=== PATIENT | female | born 1940 | race Caucasian/White ===

== ENCOUNTER 2019-06-20 18:35 | Emergency (ER) | payer OTHER, MEDICAID ==
[~2019-06-20] VITALS: Ht 157.4 cm; Wt 81.6 kg
[~2019-06-20 18:35] MED LIST: AMOXICILLIN875 MG PO; CLARITIN10 MG PO; DARVOCET N 1001 TAB PO; MAXIDE; MEDROL DOSEPAK4 MG PO; NORVASC; SPIRIVA18 MCG IH; THYROID; ZOCOR
[2019-06-20 19:57] LABS: BASO # 0.1 10*3/uL (0.0-0.1); BASO % 0.6 % (0.0-1.0); EOS # 0.1 10*3/uL (0.0-0.4); EOS % 0.6 % (1.0-4.0); HEMOGLOBIN 14.9 g/dl (12.0-16.0); LYMPH # 1.1 10*3/uL (1.3-4.4); LYMPH % 13.8 % (27.0-41.0); MEAN CELL VOLUME 92.7 fl (81.0-99.0); MEAN CORPUSCULAR HGB 29.4 pg (27.0-31.0); MEAN CORPUSCULAR HGB CONC 31.7 g/dl (33.0-37.0); MEAN PLATELET VOLUME 11.3 fl (9.6-12.3); MONO # 0.5 10*3/uL (0.1-1.0); MONO % 5.9 % (3.0-9.0); NEUT # 6.2 10*3/uL (2.3-7.9); NEUT % 78.8 % (47.0-73.0); PLATELET COUNT AUTOMATED 205 10*3/uL (130-400); RED BLOOD COUNT 5.07 10*6/uL (4.10-5.10); RED CELL DISTRI WIDTH 13.4 % (0-14.5); WHITE BLOOD COUNT 7.9 10*3/uL (4.8-10.8)
[2019-06-20 20:13] LABS: ALBUMIN 3.8 gm/dl (3.1-4.5); ALKALINE PHOSPHATASE 70 U/L (45-117); BUN 17 mg/dl (7-24); CHLORIDE 105 mmol/L (98-107); CREATININE 1.03 mg/dL (0.55-1.02); POTASSIUM 3.8 mmol/L (3.5-5.1); SGOT/AST 34 IU/L (3-35); SGPT/ALT 29 U/L (12-78); SODIUM 139 mmol/L (136-145); TOTAL PROTEIN 7.3 gm/dL (6.4-8.2)
[2019-06-20 20:24] LABS: TROPONIN I < 0.015 ng/ml (<0.045)
[2019-06-20] MEDS ORDERED: ZITHROMAX250 MG PO (21:16)
[2019-06-20 21:17] VITALS: BP 148/78
== END 2019-06-20 21:18 | disposition home or self-care (01) ==
LOC: ED 18:35
PROVIDERS: Physician Assistant
DX: J18.9 Pneumonia, unspecified organism (principal); I10 Essential (primary) hypertension; R79.1 Abnormal coagulation profile; Z88.8 Allergy status to other drugs, medicaments and biological substances; Z88.0 Allergy status to penicillin; Z79.899 Other long term (current) drug therapy

== ENCOUNTER 2022-04-14 12:48 | Emergency (ER) | payer OTHER, MEDICAID ==
[~2022-04-14] VITALS: Wt 81.6 kg
[~2022-04-14 12:48] MED LIST changes: +ZITHROMAX250 MG PO
[2022-04-14 12:54] VITALS: BP 140/40
== END 2022-04-14 14:32 | disposition left against medical advice (07) ==
LOC: ED 12:48
DX: F41.9 Anxiety disorder, unspecified (principal); Z53.21 Procedure and treatment not carried out due to patient leaving prior to being seen by health care provider

== ENCOUNTER 2022-04-21 03:49 | Inpatient (IN) | payer MEDICARE, MEDICAID ==
[~2022-04-21] VITALS: Ht 165.1 cm; Wt 78.5 kg
[2022-04-21 04:18] VITALS: BP 135/42
[2022-04-21 05:26] LABS: CREATININE 2.75 mg/dL (0.55-1.02); POTASSIUM 3.6 mmol/L (3.5-5.1); TOTAL PROTEIN 6.8 gm/dL (6.4-8.2)
[2022-04-21 05:58] LABS: BILIRUBIN Negative (Negative); BLOOD Negative (Negative); CLARITY Clear (Clear); COLOR Yellow (Yellow); GLUCOSE Negative (Negative); KETONE Trace (Negative); LEUKO ESTERASE Negative (Negative); NITRITE Negative (Negative); UROBILINOGEN 0.2 E.U./dl (0.0-1.0)
[2022-04-21 06:03] LABS: HEMATOCRIT 41.3 % (37.0-47.0); MEAN CELL VOLUME 86.4 fl (81.0-99.0); MEAN CORPUSCULAR HGB 29.1 pg (27.0-31.0); MEAN CORPUSCULAR HGB CONC 33.7 g/dl (33.0-37.0); MEAN PLATELET VOLUME 13.3 fl (9.6-12.3); PLATELET COUNT AUTOMATED 193 10*3/uL (130-400); RED BLOOD COUNT 4.78 10*6/uL (4.10-5.10); RED CELL DISTRI WIDTH 13.2 % (0-14.5); WHITE BLOOD COUNT 6.8 10*3/uL (4.8-10.8)
[2022-04-21 06:04] LABS: MANUAL DIFF REFLEX YES
[2022-04-21 06:09] LABS: BACTERIA 1+; CALCIUM OXALATE CRYSTALS 2+; WBC 0-2 wbc/hpf (0-5)
[2022-04-21 07:03] LABS: ACETAMINOPHEN (TYLENOL) < 5.0 ug/ml (10-30); ETHYL ALCOHOL < 3.0 mg/dl (<3)
[2022-04-21 07:12] LABS: URINE AMPHETAMINES < 1000 (1000ng/ml); URINE BARBITURATES < 200 (200ng/ml); URINE BENZODIAZEPINES < 200 (200ng/ml); URINE CANNABINOIDS (THC) < 50 (50ng/ml); URINE COCAINE < 300 (300ng/ml); URINE METHADONE < 300 (300ng/ml); URINE OPIATES < 300 (300ng/ml)
[2022-04-21 07:17] LABS: TOTAL CELLS COUNTED 100 #CELLS
[2022-04-21 07:18] LABS: PLATELET SUFFICIENCY NORMAL (NORMAL)
[2022-04-21 07:20] LABS: URINE PHENCYCLIDINE < 25 (25ng/ml)
[2022-04-21 11:29] VITALS: BP 135/42
[2022-04-21] MEDS ORDERED: Synthroid,Levo88 MCG PO (13:29)
[2022-04-21] MEDS ORDERED: LOSARTAN POTASS50 M1 PO (13:30)
[2022-04-21] MEDS ORDERED: PRAVASTATIN SOD10 MG PO (13:31)
[2022-04-21] MEDS ORDERED: FLUOXETINE HYDR20 M1 PO (13:31)
[2022-04-21] MEDS ORDERED: BUDESONIDE-FO10.2 G1 INH (13:32)
[2022-04-21 19:45] VITALS: BP 110/48
[2022-04-21 21:15] VITALS: BP 113/50
[2022-04-21 22:33] LABS: CREATININE 1.96 mg/dL (0.55-1.02); POTASSIUM 3.5 mmol/L (3.5-5.1)
[2022-04-22] VITALS: BP 104/56
[2022-04-22 06:24] LABS: BASO % 0.7 % (0.0-1.0); EOS # 0.2 10*3/uL (0.0-0.4); EOS % 3.6 % (1.0-4.0); HEMATOCRIT 41.7 % (37.0-47.0); LYMPH # 1.4 10*3/uL (1.3-4.4); MEAN CELL VOLUME 88.2 fl (81.0-99.0); MEAN CORPUSCULAR HGB 29.6 pg (27.0-31.0); MEAN CORPUSCULAR HGB CONC 33.6 g/dl (33.0-37.0); MEAN PLATELET VOLUME 12.9 fl (9.6-12.3); MONO # 0.6 10*3/uL (0.1-1.0); MONO % 10.3 % (3.0-9.0); NEUT # 3.6 10*3/uL (2.3-7.9); NEUT % 61.1 % (47.0-73.0); PLATELET COUNT AUTOMATED 184 10*3/uL (130-400); RED BLOOD COUNT 4.73 10*6/uL (4.10-5.10); RED CELL DISTRI WIDTH 13.4 % (0-14.5); WHITE BLOOD COUNT 5.8 10*3/uL (4.8-10.8)
[2022-04-22 06:44] LABS: BUN 20 mg/dl (7-24); CHLORIDE 98 mmol/L (98-107); POTASSIUM 3.6 mmol/L (3.5-5.1); SODIUM 135 mmol/L (136-145)
[2022-04-22 06:54] LABS: ALKALINE PHOSPHATASE 57 U/L (45-117); CHOLESTEROL 170 mg/dL (<200); CREATININE 1.85 mg/dL (0.55-1.02); LDL CHOLESTEROL 97 mg/dL (9-159); SGOT/AST 95 IU/L (3-35); SGPT/ALT 61 U/L (12-78); TOTAL PROTEIN 6.5 gm/dL (6.4-8.2); TRIGLYCERIDES 95 mg/dl (<150)
[2022-04-22 08:00] VITALS: BP 105/64
[2022-04-22 12:00] VITALS: BP 93/55
[2022-04-22 16:00] VITALS: BP 126/70
[2022-04-22 20:00] VITALS: BP 124/53
[2022-04-23] VITALS: BP 152/65
[2022-04-23 06:07] LABS: CREATININE 1.6 mg/dL (0.55-1.02); POTASSIUM 3.4 mmol/L (3.5-5.1)
[2022-04-23 06:30] LABS: BASO % 0.8 % (0.0-1.0); EOS # 0.2 10*3/uL (0.0-0.4); EOS % 3.1 % (1.0-4.0); HEMATOCRIT 41.4 % (37.0-47.0); LYMPH # 1.3 10*3/uL (1.3-4.4); LYMPH % 26.5 % (27.0-41.0); MEAN CELL VOLUME 88.8 fl (81.0-99.0); MEAN CORPUSCULAR HGB 29.4 pg (27.0-31.0); MEAN CORPUSCULAR HGB CONC 33.1 g/dl (33.0-37.0); MEAN PLATELET VOLUME 12.4 fl (9.6-12.3); MONO # 0.6 10*3/uL (0.1-1.0); MONO % 12.7 % (3.0-9.0); NEUT # 2.7 10*3/uL (2.3-7.9); NEUT % 56.7 % (47.0-73.0); PLATELET COUNT AUTOMATED 173 10*3/uL (130-400); RED BLOOD COUNT 4.66 10*6/uL (4.10-5.10); RED CELL DISTRI WIDTH 13.5 % (0-14.5); WHITE BLOOD COUNT 4.8 10*3/uL (4.8-10.8)
[2022-04-23 08:00] VITALS: BP 134/71
[2022-04-23 12:00] VITALS: BP 126/64
[2022-04-23 16:00] VITALS: BP 113/46
[2022-04-23 20:00] VITALS: BP 127/68
[2022-04-24] VITALS: BP 164/77
[2022-04-24 07:04] LABS: CREATININE 1.29 mg/dL (0.55-1.02); POTASSIUM 3.3 mmol/L (3.5-5.1)
[2022-04-24 08:00] VITALS: BP 132/74
[2022-04-24 12:00] VITALS: BP 124/82
[2022-04-24 16:00] VITALS: BP 129/63
[2022-04-24 20:00] VITALS: BP 143/84
[2022-04-25] VITALS: BP 152/71
[2022-04-25 06:23] LABS: CREATININE 1.18 mg/dL (0.55-1.02); POTASSIUM 3.7 mmol/L (3.5-5.1)
[2022-04-25 08:00] VITALS: BP 160/80
[2022-04-25 12:00] VITALS: BP 139/79
[2022-04-25 16:00] VITALS: BP 136/59
[2022-04-25 20:00] VITALS: BP 124/57
[2022-04-26] VITALS: BP 119/64
[2022-04-26 08:00] VITALS: BP 152/83
[2022-04-26 12:00] VITALS: BP 132/59
[2022-04-26 16:00] VITALS: BP 153/57
[2022-04-26 20:00] VITALS: BP 123/54
[2022-04-27] VITALS: BP 133/64
[2022-04-27 06:16] LABS: BASO # 0.1 10*3/uL (0.0-0.1); EOS # 0.2 10*3/uL (0.0-0.4); EOS % 4.4 % (1.0-4.0); HEMATOCRIT 42.8 % (37.0-47.0); LYMPH # 1.4 10*3/uL (1.3-4.4); LYMPH % 27.4 % (27.0-41.0); MEAN CELL VOLUME 94.1 fl (81.0-99.0); MEAN CORPUSCULAR HGB 29.2 pg (27.0-31.0); MEAN CORPUSCULAR HGB CONC 31.1 g/dl (33.0-37.0); MEAN PLATELET VOLUME 11.7 fl (9.6-12.3); MONO # 0.5 10*3/uL (0.1-1.0); MONO % 10.3 % (3.0-9.0); NEUT # 2.8 10*3/uL (2.3-7.9); NEUT % 56.5 % (47.0-73.0); PLATELET COUNT AUTOMATED 184 10*3/uL (130-400); RED BLOOD COUNT 4.55 10*6/uL (4.10-5.10); RED CELL DISTRI WIDTH 14.2 % (0-14.5)
[2022-04-27 06:34] LABS: CREATININE 1.11 mg/dL (0.55-1.02); POTASSIUM 4.3 mmol/L (3.5-5.1)
[2022-04-27 08:00] VITALS: BP 140/79
[2022-04-27 12:00] VITALS: BP 150/79
[2022-04-27] MEDS ORDERED: RIVASTIGMINE1 EACH T (12:23)
[2022-04-27] MEDS ORDERED: LOSARTAN POTASS50 M1 PO (12:23)
[2022-04-27] MEDS ORDERED: NAMENDA-5 PO (12:23)
[2022-04-27 13:06] LABS: ALBUMIN, URINE 41.9 % (.); ALPHA-1-GLOBULIN, URINE 5.5 % (.); ALPHA-2-GLOBULIN, URINE 12.6 % (.); BETA GLOBULIN, URINE 29.2 % (.); GAMMA GLOBULIN, URINE 10.8 % (.); M-SPIKE, % Not Observed % (Not Observed); PROTEIN,TOTAL - URINE RANDOM 11.5 mg/dL (Not Estab.)
[2022-04-27 16:00] VITALS: BP 120/80
== END 2022-04-27 18:52 | disposition home health service (06) | DRG 682 ==
LOC: ED 03:49 → EDHOLD 09:49 → 5E 10:53 → EDHOLD 10:53 → 5E 20:04
PROVIDERS: Emergency Medicine; Internal Medicine; Registered Nurse; ADMIT Family Medicine; ATTEND Family Medicine
DX: N17.0 Acute kidney failure with tubular necrosis (principal); G93.41 Metabolic encephalopathy; E87.1 Hypo-osmolality and hyponatremia; I10 Essential (primary) hypertension; J44.9 Chronic obstructive pulmonary disease, unspecified; E03.9 Hypothyroidism, unspecified; F32.9 Major depressive disorder, single episode, unspecified; R73.9 Hyperglycemia, unspecified; E87.8 Other disorders of electrolyte and fluid balance, not elsewhere classified; E87.6 Hypokalemia; G30.9 Alzheimer's disease, unspecified; F02.80 Dementia in other diseases classified elsewhere, unspecified severity, without behavioral disturbance, psychotic disturbance, mood disturbance, and anxiety; Z88.0 Allergy status to penicillin